=== PATIENT | male | born 1950 | race Caucasian/White ===

== ENCOUNTER 2016-08-12 08:53 | Emergency (ER) | payer BC, MEDICARE ==
[2016-08-12] MEDS ORDERED: DIPH,PERTUS(ACELL)TETVAC-LF 0.5 ML VIAL IM ONE (09:05)
--- NOTE | 2016-08-12 09:28 | XR ---
EXAMINATION TYPE: XR finger RT DATE OF EXAM: 08/12/2016 9:22 AM COMPARISON: NONE HISTORY: Slicing injury today with pain. TECHNIQUE: 3 views of right thumb are obtained. FINDINGS: No acute fracture or dislocation is evident. The joint spaces are preserved. Soft tissue ir regularity consistent with laceration injury at level of first distal phalanx along the ulnar palmar aspect is identified, some punctate densities are noted on frontal and oblique images suspicious for tiny foreign body. IMPRESSION: Laceration and tiny punctate soft tissue foreign body, no acute fracture or dislocation i s evident in right thumb.
--- NOTE | 2016-08-12 09:29 | ED ---
General Adult HPI - General Chief complaint: Wound/Laceration Stated complaint: laceration rt thumb vs table saw Time Seen by Provider: 08/12/16 09:02 Source: patient, RN notes reviewed Mode of arrival: ambulatory Limitations: no limitations - History of Present Illness Initial comments: Patient's a 75-year-old male who presents emergency room today with a chief complaint of a laceration to the right thumb. Patient does admit that he was using a table saw earlier today actively catching the right thumb causing this laceration. States locally to the area. Denies any other complaints or injuries. States he has full range of motion. Patient states unsure of his tetanus status. Patient denies any recent fever, chills, shortness of breath, chest pain, back pain, abdominal pain, nausea or vomiting, numbness or tingling , dysuria or hematuria, constipation or diarrhea, headaches or visual changes, or any other complaints. - Related Data Previous Rx's Medication Instructions Recorded Cephalexin [Keflex] 500 mg PO Q12HR 7 Days 08/12/16 Allergies Allergy/AdvReac Type Severity Reaction Status Date / Time No Known Allergies Allergy Verified 08/12/16 09:09 Review of Systems ROS Statement: Those systems with pertinent positive or pertinent negative responses have been documented in the HPI. ROS Other: All systems not noted in ROS Statement are negative. Past Medical History Past Medical History: No Reported History History of Any Multi-Drug Resistant Organisms: None Reported Additional Past Surgical History / Comment(s): splenectomy, left hand surgery Past Psychological History: No Psychological Hx Reported Smoking Status: Never smoker Past Alcohol Use History: Occasional Past Drug Use History: None Reported General Exam - General Exam Comments Initial Comments: General: The patient is awake and alert, in no distress, and does not appear acutely ill. Neck: The neck is supple, there is no tenderness or JVD. Cardiovascular: There is a regular rate and rhythm. No murmur, rub or gallop is appreciated. Respiratory: Lungs are clear to auscultation, respirations are non-labored, breath sounds are equal. No wheezes, stridor, rales, or rhonchi. Musculoskeletal: Patient does have a laceration to the volar aspect of the right thumb. Shows good range of motion both flexion and extension. Sensations intact. Cap refill less than 2 seconds. Pulses equal bilaterally 2+ . Strength 5/5. Neurological: A&O x 3. CN II-XII intact, There are no obvious motor or sensory deficits. Coordination appears grossly intact. Speech is normal. Skin: Laceration noted to the volar aspect of the right thumb. Psychiatric: Normal mood and affect. Limitations: no limitations Course Vital Signs 08/12/16 09:05 Temperature 97.3 F L Pulse Rate 65 Respiratory 20 Rate Blood Pressure 114/75 O2 Sat by Pulse 100 Oximetry Procedures - Procedures Initial comment: 3 cm laceration L-shaped to the volar aspect of the right thumb.The skin was anesthetized with 1% lidocaine at the head of the metacarpals. The laceration was then cleansed with Betadine and irrigated with normal saline. The wound was inspected, and there was no evidence of injury to deep structures. No foreign body was noted in the wound. A total of 9 skin sutures were placed utilizing 5- 0 nylon. Disposition Clinical Impression: Laceration Disposition: HOME SELF-CARE Condition: Good Instructions: Laceration (ED) Additional Instructions: Please return to the emergency room in 8-10 days to have sutures removed. Please watch for any signs of infection which may include increased pain, swelling, redness, fever or chills. Please return to emergency room for any signs of infection do occur. Please use clean soap and water over the area to prevent scabbing over your stitches. Please leave wound covered for the first 24-48 hours and then leave wound open to air. Please return to the emergency room for any other concerns. Prescriptions: Cephalexin [Keflex] 500 mg PO Q12HR 7 Days Referrals: None,Stated [Primary Care Provider] - 1-2 days Star Peña DO [Doctor of Osteopathic Medicine] - 1-2 days Time of Disposition: 10:11
[2016-08-12 10:25] VITALS: BP 112/74; PULSE 67; RESP 16; TEMP 97.6
== END 2016-08-12 10:15 | disposition home or self-care (01) ==
LOC: EC 08:53
DX: S61.012A Laceration without foreign body of left thumb without damage to nail, initial encounter (principal); W31.2XXA Contact with powered woodworking and forming machines, initial encounter; Z23 Encounter for immunization
CPT/HCPCS: 12002; 90471; 90715; 99283

== ENCOUNTER 2016-08-23 10:48 | Emergency (ER) | payer BC, MEDICARE ==
[2016-08-23 11:02] VITALS: BP 182/97; PULSE 58; RESP 20; TEMP 97.7
--- NOTE | 2016-08-23 11:32 | ED ---
General Adult HPI - General Chief complaint: Recheck/Abnormal Lab/Rx Stated complaint: Thumb infection Time Seen by Provider: 08/23/16 11:04 Source: patient, RN notes reviewed, old records reviewed Mode of arrival: ambulatory Limitations: no limitations - History of Present Illness Initial comments: This is a 65-year-old male to the ER for wound check of right thumb, wound reevaluation. Patient had right thumb laceration repair secondary to work injury at home about 8 days ago. It was anterior surface of thumb, patient states skin is becoming dark black but no increasing pain or tenderness, no increasing redness or erythema of the hand, patient was evaluated by friends and family to come here to make sure symptoms were worsening or infection was setting in. Patient was on antibiotics after the injury originally which have run their course. - Related Data Previous Rx's Medication Instructions Recorded Amoxicillin/Potassium Clav 1 tab PO Q12HR #14 tab 08/23/16 [Augmentin 875-125 Tablet] Allergies Allergy/AdvReac Type Severity Reaction Status Date / Time No Known Allergies Allergy Verified 08/23/16 11:24 Review of Systems ROS Statement: Those systems with pertinent positive or pertinent negative responses have been documented in the HPI. ROS Other: All systems not noted in ROS Statement are negative. Past Medical History Past Medical History: No Reported History History of Any Multi-Drug Resistant Organisms: None Reported Additional Past Surgical History / Comment(s): splenectomy, left hand surgery Past Psychological History: No Psychological Hx Reported Smoking Status: Never smoker Past Alcohol Use History: Occasional Past Drug Use History: None Reported General Exam - General Exam Comments Initial Comments: root thumb has well-healing wound, some skin does appear to be necrotic from thin tissue secondary to laceration, no erythema no significant warmth Limitations: no limitations General appearance: alert, in no apparent distress Head exam: Present: atraumatic, normocephalic, normal inspection Eye exam: Present: normal appearance, PERRL, EOMI. Absent: scleral icterus, conjunctival injection, periorbital swelling ENT exam: Present: normal exam, mucous membranes moist Neck exam: Present: normal inspection. Absent: tenderness, meningismus, lymphadenopathy Respiratory exam: Present: normal lung sounds bilaterally. Absent: respiratory distress, wheezes, rales, rhonchi, stridor Cardiovascular Exam: Present: regular rate, normal rhythm, normal heart sounds. Absent: systolic murmur, diastolic murmur, rubs, gallop, clicks GI/Abdominal exam: Present: soft, normal bowel sounds. Absent: distended, tenderness, guarding, rebound, rigid Extremities exam: Present: normal inspection, full ROM, normal capillary refill. Absent: tenderness, pedal edema, joint swelling, calf tenderness Back exam: Present: normal inspection Neurological exam: Present: alert, oriented X3, CN II-XII intact Psychiatric exam: Present: normal affect, normal mood Skin exam: Present: warm, dry, intact, normal color. Absent: rash Course Vital Signs 08/23/16 10:59 Temperature 97.7 F Pulse Rate 58 L Respiratory 20 Rate Blood Pressure 182/97 O2 Sat by Pulse 98 Oximetry - Reevaluation(s) Reevaluation #1: 08/23/16 11:31 Patient consult regarding hand infection warning signs, will return to ER if symptoms worsen Medical Decision Making - Medical Decision Making 67 LDR for wound reevaluation, wound is healing well, sutures removed in 3 days , patient follow-up with family care Disposition Clinical Impression: Laceration, Encounter for wound re-check Disposition: HOME SELF-CARE Condition: Good Instructions: Acute Wound Care (ED) Prescriptions: Amoxicillin/Potassium Clav [Augmentin 875-125 Tablet] 1 tab PO Q12HR #14 tab Referrals: None,Stated [Primary Care Provider] - 1-2 days
== END 2016-08-23 11:41 | disposition home or self-care (01) ==
LOC: EC 10:48
DX: S61.011D Laceration without foreign body of right thumb without damage to nail, subsequent encounter (principal); X58.XXXD Exposure to other specified factors, subsequent encounter; Y92.009 Unspecified place in unspecified non-institutional (private) residence as the place of occurrence of the external cause
CPT/HCPCS: 99283